=== PATIENT | female | born 1980 | race Caucasian/White ===

== ENCOUNTER 2021-01-17 08:06 | Emergency (ER) | payer BC, SELFPAY ==
--- NOTE | ~2021-01-17 | XR_ITS ---
EXAMINATION: XR ribs RT 2V w CXR 2V EXAM DATE: 01/17/2021 08:58 INDICATION: Right-sided rib and shoulder pain with limited range of motion. TECHNIQUE: Frontal projection of the upper right ribs, frontal projection of the lower right ribs, ob lique projection of the right ribs, frontal and lateral chest x-ray(s) for interpretation. There is no prior study for comparison. FINDINGS: There is acute closed posttraumatic right 5th rib fracture identified anterolaterally, raysa cated. There is a few millimeters of displacement. There is no soft tissue abnormality seen. No conf luent consolidation, pneumothorax or pleural effusion suspected. Cardiomediastinal silhouette is norm al. There are cholecystectomy clips. IMPRESSION: Acute right 5th rib fracture anterolaterally. Reviewed, dictated and finalized at location A.
--- NOTE | ~2021-01-17 | XR_ITS ---
XR shoulder RT min 2V DATE: 01/17/2021 08:59 INDICATION: Limited range of motion of right shoulder TECHNIQUE: 4 views COMPARISON: None FINDINGS: Minimally displaced anterolateral y recent right fifth rib fracture. No fracture or dislocation of the right shoulder. No right shoulder abnormal calcification. IMPRESSION: Anterolateral recent right fifth rib minimally displaced fracture Reviewed, dictated and finalized at location A.
--- NOTE | 2021-01-17 08:13 | ED.UPPEXIN ---
HPI - Extremity Injury (Upper) General Chief Complaint: Extremity Injury, Upper Stated Complaint: shoulder pain Time Seen by Provider: 01/17/21 08:13 Source: patient and RN notes reviewed History of Present Illness HPI narrative: Patient is a 40-year-old female who presents the urgent care with complaints of right shoulder, right rib and sternum pain. Patient states that she was adjusted on January 12 last week by her chiropractor and [place] and has since then been having severe pain. Patient states that she is unable to take her medications for COPD and asthma due to inability to take deep breaths. Patient is on hydrocodone and Valium for chronic pains due to Crohn's disease and pancreas pain . Patient states that she has been taking those medications without much relief. Patient states that she is unable to lift the right arm due to severe pain. Patient appears very anxious and is accompanied by her service dog. Patient states that she has been going to this chiropractor for a very long time and has not gotten x-rays since her visit last week. No other acute complaints. No acute distress noted. Patient aware of the plan of care. Some parts of this dictation were generated by voice recognition software and may contain typographical and/or grammatical inaccuracies. Related Data Home Medications Medication Instructions Recorded Confirmed Medical Cannibas 01/17/21 Valium 01/17/21 01/17/21 hydrocodone-acetaminophen 01/17/21 Allergies Allergy/AdvReac Type Severity Reaction Status Date / Time iohexol Allergy Unknown Verified 01/17/21 08:24 [From contrast - CT, X-RAY] ANTIDEPRESSANTS AdvReac Other Uncoded 01/17/21 08:24 Review of Systems Review of Systems: Narrative: CONSTITUTIONAL: Denies fever, chills, or sweats. EYES: Denies visual changes, redness, or discharge. ENT: Denies rhinorrhea, congestion, sore throat, or otalgia. CARDIOVASCULAR: Denies chest pain, palpitations, or edema. RESPIRATORY: Denies cough or dyspnea. Reports of pain when deep breathing GASTROINTESTINAL: Denies abdominal pain, nausea, vomiting, or diarrhea. GENITOURINARY: Denies dysuria or hematuria. SKIN: Denies rash or itching. MUSCULOSKELETAL: Reports of right shoulder, right ribs and sternum pain NEUROLOGIC: Denies headache, numbness, or weakness. All other systems reviewed are negative, except as documented in HPI. PMFSH Comments At the time of my signature, I reviewed and agree with the nursing past medical, surgical, social, and family history. There is no relevant family history pertinent to the patient complaint. Exam Narrative: Exam Narrative: GENERAL: This is a well-nourished, well-developed patient, very anxious HEAD: normocephalic, atraumatic. EYES: PERRL. Sclera clear/white. Vision is grossly intact. EARS: External ears normal NOSE: External nose normal with no obvious nasal discharge, nares without redness, no rhinorrhea. THROAT: Mucous membranes moist NECK: Neck supple CARDIOVASCULAR: Regular rate and rhythm without murmurs, gallops, or rubs. RESPIRATORY: Clear to auscultation. Breath sounds equal bilaterally. No wheezes, rales, or rhonchi. SKIN: warm, intact with no suspicious lesions or rash, good texture and turgor. NEURO: awake, alert, and oriented to person, place and time. There were no obvious focal neurologic abnormalities. EXTREMITIES: No clubbing, cyanosis, or edema. No joint tenderness, effusion, or edema noted. No calf tenderness. Negative Homans sign bilaterally. Course Vital Signs Vital signs: Vital Signs Temperature 99.0 F 01/17/21 08:22 Pulse Rate 118 H 01/17/21 08:22 Respiratory Rate 20 01/17/21 08:22 Blood Pressure 145/78 H 01/17/21 08:22 Pulse Oximetry 100 01/17/21 08:22 Temperature 99.0 F 01/17/21 08:22 Pulse Rate 118 H 01/17/21 08:22 Respiratory Rate 20 01/17/21 08:22 Blood Pressure 145/78 H 01/17/21 08:22 Pulse Oximetry 100 01/17/21 08:22 Reviewed-jacqui
[2021-01-17 08:22] VITALS: BP 145/78; PULSE 118; RESP 20; TEMP 37.2; O2SAT 100
== END 2021-01-17 09:21 | disposition home or self-care (01) ==
PROVIDERS: Emergency Provider Nurse Practitioner Family
DX: S22.31XA Fracture of one rib, right side, initial encounter for closed fracture (principal); X58.XXXA Exposure to other specified factors, initial encounter
CPT/HCPCS: 71046; 71100; 73030; 99203; G0463